=== PATIENT | female | born 1940 | race Caucasian/White ===

== ENCOUNTER 2017-05-25 05:23 | Inpatient (IN) | payer MEDICARE, MEDICAID ==
[~2017-05-25] VITALS: Ht 142.2 cm; Wt 50.0 kg
[2017-05-25] VITALS (7 sets, daily range): BP systolic 118–146; BP diastolic 56–81
[~2017-05-25 05:23] MED LIST: ALBUPOW25 XX; CODEINE PO; DILT120T8 OR; LISI10TA6 OR; LORA-205 OR; POTA-167 OR; PROMETHAZINE PO; ROSU10TA16 OR; potassium gluconate
[2017-05-25 06:24] LABS: Basophils # (auto) 0.1 uL; Basophils % (auto) 0.7 % (0.0-2.0); Eosinophils # (auto) 0 uL; Eosinophils % (auto) 0.2 % (0.0-7.0); Hematocrit 38.3 % (36.0-46.0); Hemoglobin 12.2 g/dL (12.2-16.2); Lymphocytes # (auto) 0.5 uL; Lymphocytes % (auto) 4.2 % (10.0-50.0); Mean Corpuscular Hemoglobin 32.3 pg (28.0-32.0); Mean Corpuscular Hgb Conc. 31.8 g/dL (32.0-36.0); Mean Corpuscular Volume 101.4 fL (80.0-100.0); Monocytes % (auto) 8.1 % (0.0-12.0); Neutrophils # (auto) 10.7 uL; Neutrophils % (auto) 86.8 % (37.0-80.0); Platelet Count (auto) 162 10^3/uL (140-450); Red Blood Cells 3.78 10^6/uL (4.0-5.20); Red Cell Distribution Width 16.2 % (11.8-14.3); White Blood Cell 12.3 10^3/uL (4.4-10.8)
[2017-05-25 06:38] LABS: INR 1.06 (0.9-1.15); Partial Thromboplastin Time 28.5 sec (22.64-33.71); Prothrombin Time 11.6 sec (9.37-12.3)
[2017-05-25 06:44] LABS: Albumin 3.6 g/dL (3.4-5.0); BUN/Creatinine Ratio 52.7; Calcium 8.8 mg/dL (8.5-10.1)
[2017-05-25] MEDS ORDERED: ACETAMINOPHEN 650 MG RECT SUPP PR ONE (06:45)
[2017-05-25 06:58] LABS: Bilirubin, Total 0.5 mg/dL (0.2-1.0); Total Protein 7.9 g/dL (6.4-8.2)
[2017-05-25] MEDS ORDERED: SODIUM CHLORIDE 0.9% 1,000 ML IV ONE (07:00)
[2017-05-25 07:43] LABS: Urine Bacteria MOD /hpf (None Seen); Urine Blood Negative /uL (Negative); Urine Mucus MODERATE (None Seen); Urine Specific Gravity 1.027 (1.001-1.035); Urine WBC 129 /hpf (0 - 5)
[2017-05-25] MEDS ORDERED: VANCOMYCIN 1GM/250ML 250 ML IV ONE (07:45)
[2017-05-25] MEDS ORDERED: VANCOMYCIN PER PHARMACY 0 MG IV SCH (10:15)
[2017-05-25] MEDS ORDERED: CLOPIDOGREL BISULFATE 75 MG TAB PO ONE (10:15)
[2017-05-25] MEDS ORDERED: DILTIAZEM HCL 120MG ER CAP PO ONE (10:15)
[2017-05-25] MEDS ORDERED: LEVOFLOXACIN 500MG 100 ML IV ONE (10:15)
[2017-05-25] MEDS ORDERED: LEVOTHYROXINE SODIUM 100 MCG TAB PO ONE (10:15)
[2017-05-25] MEDS ORDERED: ASCORBIC ACID 500 MG TAB PO ONE (10:15)
[2017-05-25] MEDS ORDERED: PANTOPRAZOLE 40 MG TAB PO ONE (10:30)
[2017-05-25] MEDS ORDERED: HYDROcodone-ACET 5/325MG TAB PO PRN (10:30)
[2017-05-25] MEDS ORDERED: TEMAZEPAM 15 MG CAP PO PRN (10:30)
[2017-05-25] MEDS ORDERED: DEXTROSE (50%) 50ML SYRG IV PRN (10:30)
[2017-05-25] MEDS ORDERED: MILK OF MAGNESIA 30ML SUSP PO PRN (10:30)
[2017-05-25] MEDS ORDERED: POTASSIUM CHLORIDE 8 MEQ TAB PO ONE (10:30)
[2017-05-25] MEDS ORDERED: NITROGLYCERIN 0.4 MG SL TAB SL PRN (10:30)
[2017-05-25] MEDS ORDERED: FUROSEMIDE 20 MG/2 ML VIAL IV ONE (10:30)
[2017-05-25] MEDS ORDERED: DOCUSATE SOD 100 MG CAP PO PRN (10:30)
[2017-05-25] MEDS ORDERED: ONDANSETRON HCL 4 MG/2 ML VIAL IV PRN (10:30)
[2017-05-25] MEDS ORDERED: MORPHINE SULFATE 4 MG/ML SYR/VIAL IV PRN ×2 (10:30)
[2017-05-25] MEDS: InsuLIN REG 1unit/0.01ml Soln (100units/ml) SC SCH ×3 (11:04→22:00)
[2017-05-25] MEDS: ACCU-CHEK COMFORT CURVE STRIP VI SCH ×3 (11:04→22:20)
[2017-05-25] MEDS: MEGESTROL ACET 400MG/10ML ORAL SUSP PO SCH ×2 (11:13→21:56)
[2017-05-25] MEDS: BUDESONIDE (INHALATION) 0.5 MG/2 ML NEB NEB SCH ×2 (11:35→18:56)
[2017-05-25] MEDS: LEVALBUTEROL HCL 1.25 MG/3 ML NEB IN SCH ×2 (11:35→18:56)
[2017-05-25] MEDS: IPRATROPIUM BROM 0.5 MG/2.5ML INH SOL NEB SCH ×2 (11:35→18:56)
[2017-05-25] MEDS ORDERED: PATIENTS OWN MEDICATION IN SCH (12:00)
[2017-05-25] MEDS ORDERED: PATIENTS OWN MEDICATION NEB SCH (12:00)
[2017-05-25] MEDS ORDERED: BOOST PLUS 8 ounce PO SCH (12:00)
[2017-05-25] MEDS: SODIUM CHLOR 0.9% PF (SALINE LOCK) 10ML VIAL IV SCH ×2 (12:46→21:55)
[2017-05-25] MEDS: Boost Glucose Control 8 Ounces PO SCH ×2 (13:03→18:33)
[2017-05-25 14:27] LABS: Urine Bacteria FEW /hpf (None Seen); Urine Blood 1+ /uL (Negative); Urine Specific Gravity 1.011 (1.001-1.035); Urine WBC 6 /hpf (0 - 5)
[2017-05-25] MEDS: FUROSEMIDE 20 MG/2 ML VIAL IV SCH (18:33)
[2017-05-25] MEDS ORDERED: VANCOMYCIN 750 MG in D5W 5% 250 ML IV SCH (20:00)
[2017-05-25] MEDS: TOLTERODINE TARTRATE 1 MG TAB PO SCH (21:55)
[2017-05-25] MEDS: ATORVASTATIN 20 MG TAB PO SCH (21:56)
[2017-05-25] MEDS: MIRTAZAPINE 30 MG TAB PO SCH (21:56)
[2017-05-25] MEDS: POTASSIUM CHLORIDE 8 MEQ TAB PO SCH (21:56)
[2017-05-25] MEDS ORDERED: FAMOTIDINE 20 MG TAB PO SCH (22:00)
[2017-05-26] VITALS (8 sets, daily range): BP systolic 112–130; BP diastolic 55–76
[2017-05-26] MEDS: LEVALBUTEROL HCL 1.25 MG/3 ML NEB IN SCH ×4 (00:29→18:45)
[2017-05-26] MEDS: IPRATROPIUM BROM 0.5 MG/2.5ML INH SOL NEB SCH ×4 (00:29→18:45)
[2017-05-26] MEDS: SODIUM CHLOR 0.9% PF (SALINE LOCK) 10ML VIAL IV SCH ×3 (05:56→21:30)
[2017-05-26 06:06] LABS: Basophils # (auto) 0 uL; Eosinophils # (auto) 0 uL; Hematocrit 38.1 % (36.0-46.0); Hemoglobin 12.2 g/dL (12.2-16.2); Lymphocytes # (auto) 0.7 uL; Mean Corpuscular Volume 103.5 fL (80.0-100.0); Red Cell Distribution Width 15.9 % (11.8-14.3)
[2017-05-26 06:09] LABS: Basophils % (auto) 0.3 % (0.0-2.0); Eosinophils % (auto) 0.2 % (0.0-7.0); Lymphocytes % (auto) 8.4 % (10.0-50.0); Mean Corpuscular Hgb Conc. 31.9 g/dL (32.0-36.0); Monocytes % (auto) 12.4 % (0.0-12.0); Neutrophils # (auto) 6.5 uL; Neutrophils % (auto) 78.7 % (37.0-80.0); Nucleated Red Blood Cells % 0.2 %; Platelet Count (auto) 130 10^3/uL (140-450); Red Blood Cells 3.69 10^6/uL (4.0-5.20); White Blood Cell 8.2 10^3/uL (4.4-10.8)
[2017-05-26] MEDS: ACCU-CHEK COMFORT CURVE STRIP VI SCH ×2 (06:12→11:51)
[2017-05-26] MEDS: InsuLIN REG 1unit/0.01ml Soln (100units/ml) SC SCH ×2 (06:12→11:30)
[2017-05-26 06:15] LABS: Albumin 3.1 g/dL (3.4-5.0); BUN/Creatinine Ratio 56.2; Bilirubin, Total 0.3 mg/dL (0.2-1.0); Potassium 4.8 mmol/L (3.5-5.1); Total Protein 7.6 g/dL (6.4-8.2)
[2017-05-26] MEDS: FUROSEMIDE 20 MG/2 ML VIAL IV SCH ×2 (06:20→10:53)
[2017-05-26] MEDS: LEVOTHYROXINE SODIUM 100 MCG TAB PO SCH (06:20)
[2017-05-26] MEDS: BUDESONIDE (INHALATION) 0.5 MG/2 ML NEB NEB SCH ×2 (06:28→18:45)
[2017-05-26] MEDS: Boost Glucose Control 8 Ounces PO SCH ×3 (08:00→17:41)
[2017-05-26] MEDS: MIRTAZAPINE 30 MG TAB PO SCH ×2 (08:56→21:30)
[2017-05-26] MEDS: DILTIAZEM HCL 120MG ER CAP PO SCH ×2 (10:00→11:17)
[2017-05-26] MEDS: LEVOFLOXACIN 500MG 100 ML IV SCH (10:00)
[2017-05-26] MEDS: CLOPIDOGREL BISULFATE 75 MG TAB PO SCH (10:50)
[2017-05-26] MEDS: POTASSIUM CHLORIDE 8 MEQ TAB PO SCH ×2 (10:50→21:30)
[2017-05-26] MEDS: MULTIPLE VITAMIN TAB PO SCH (10:50)
[2017-05-26] MEDS: ZINC SULFATE 220 MG CAP PO SCH (10:50)
[2017-05-26] MEDS: PANTOPRAZOLE 40 MG TAB PO SCH (10:50)
[2017-05-26] MEDS: ASCORBIC ACID 500 MG TAB PO SCH (10:50)
[2017-05-26] MEDS: TOLTERODINE TARTRATE 1 MG TAB PO SCH ×2 (10:51→21:30)
[2017-05-26] MEDS: MEGESTROL ACET 400MG/10ML ORAL SUSP PO SCH ×2 (10:51→21:30)
[2017-05-26] MEDS: ATORVASTATIN 20 MG TAB PO SCH (21:30)
[2017-05-27] MEDS: IPRATROPIUM BROM 0.5 MG/2.5ML INH SOL NEB SCH ×4 (00:22→19:38)
[2017-05-27] MEDS: LEVALBUTEROL HCL 1.25 MG/3 ML NEB IN SCH ×4 (00:23→19:37)
[2017-05-27 03:56] VITALS: BP 133/67
[2017-05-27] MEDS: SODIUM CHLOR 0.9% PF (SALINE LOCK) 10ML VIAL IV SCH ×3 (06:07→23:06)
[2017-05-27] MEDS: LEVOTHYROXINE SODIUM 100 MCG TAB PO SCH (06:08)
[2017-05-27 06:19] LABS: Potassium 4.7 mmol/L (3.5-5.1)
[2017-05-27 06:23] LABS: BUN/Creatinine Ratio 80.3; Calcium 8.9 mg/dL (8.5-10.1)
[2017-05-27] MEDS: BUDESONIDE (INHALATION) 0.5 MG/2 ML NEB NEB SCH ×2 (06:50→19:38)
[2017-05-27 07:48] LABS: Basophils # (auto) 0 uL; Basophils % (auto) 0.3 % (0.0-2.0); Eosinophils # (auto) 0.1 uL; Eosinophils % (auto) 0.7 % (0.0-7.0); Hematocrit 35.6 % (36.0-46.0); Hemoglobin 11.8 g/dL (12.2-16.2); Lymphocytes # (auto) 0.7 uL; Lymphocytes % (auto) 8.6 % (10.0-50.0); Mean Corpuscular Hemoglobin 32.6 pg (28.0-32.0); Mean Corpuscular Volume 98.8 fL (80.0-100.0); Monocytes # (auto) 0.8 uL; Monocytes % (auto) 9.4 % (0.0-12.0); Neutrophils # (auto) 6.5 uL; Red Cell Distribution Width 14.8 % (11.8-14.3)
[2017-05-27 08:04] LABS: Platelet Count (auto) 137 10^3/uL (140-450)
[2017-05-27] MEDS: Boost Glucose Control 8 Ounces PO SCH ×3 (08:37→18:00)
[2017-05-27] MEDS: FUROSEMIDE 20 MG/2 ML VIAL IV SCH (12:01)
[2017-05-27] MEDS: ASCORBIC ACID 500 MG TAB PO SCH (12:02)
[2017-05-27] MEDS: LEVOFLOXACIN 500MG 100 ML IV SCH (12:02)
[2017-05-27] MEDS: ZINC SULFATE 220 MG CAP PO SCH (12:03)
[2017-05-27] MEDS: TOLTERODINE TARTRATE 1 MG TAB PO SCH ×2 (12:03→23:06)
[2017-05-27] MEDS: POTASSIUM CHLORIDE 8 MEQ TAB PO SCH ×2 (12:03→23:05)
[2017-05-27] MEDS: PANTOPRAZOLE 40 MG TAB PO SCH (12:03)
[2017-05-27] MEDS: CLOPIDOGREL BISULFATE 75 MG TAB PO SCH (12:04)
[2017-05-27] MEDS: DILTIAZEM HCL 120MG ER CAP PO SCH (12:04)
[2017-05-27] MEDS: MEGESTROL ACET 400MG/10ML ORAL SUSP PO SCH ×2 (12:04→22:59)
[2017-05-27] MEDS: MULTIPLE VITAMIN TAB PO SCH (12:04)
[2017-05-27] MEDS: ACETAMINOPHEN 325 MG TAB PO PRN (19:00)
[2017-05-27 21:43] VITALS: BP 131/70
[2017-05-27] MEDS: ATORVASTATIN 20 MG TAB PO SCH ×2 (23:00→23:06)
[2017-05-27] MEDS: MIRTAZAPINE 30 MG TAB PO SCH (23:05)
[2017-05-28] MEDS: IPRATROPIUM BROM 0.5 MG/2.5ML INH SOL NEB SCH ×4 (00:26→18:45)
[2017-05-28] MEDS: LEVALBUTEROL HCL 1.25 MG/3 ML NEB IN SCH ×4 (00:26→18:45)
[2017-05-28 05:29] VITALS: BP 136/71
[2017-05-28] MEDS: LEVOTHYROXINE SODIUM 100 MCG TAB PO SCH (05:35)
[2017-05-28] MEDS: SODIUM CHLOR 0.9% PF (SALINE LOCK) 10ML VIAL IV SCH ×3 (05:37→22:04)
[2017-05-28] MEDS: BUDESONIDE (INHALATION) 0.5 MG/2 ML NEB NEB SCH ×2 (06:41→18:45)
[2017-05-28] MEDS: Boost Glucose Control 8 Ounces PO SCH ×3 (08:00→18:29)
[2017-05-28 08:21] VITALS: BP 134/54
[2017-05-28] MEDS: POTASSIUM CHLORIDE 8 MEQ TAB PO SCH ×2 (09:40→22:04)
[2017-05-28] MEDS: MEGESTROL ACET 400MG/10ML ORAL SUSP PO SCH ×2 (09:40→22:04)
[2017-05-28] MEDS: MULTIPLE VITAMIN TAB PO SCH (09:40)
[2017-05-28] MEDS: TOLTERODINE TARTRATE 1 MG TAB PO SCH ×2 (09:40→22:04)
[2017-05-28] MEDS: ZINC SULFATE 220 MG CAP PO SCH (09:40)
[2017-05-28] MEDS: PANTOPRAZOLE 40 MG TAB PO SCH (09:40)
[2017-05-28] MEDS: DILTIAZEM HCL 120MG ER CAP PO SCH (09:40)
[2017-05-28] MEDS: ASCORBIC ACID 500 MG TAB PO SCH (09:40)
[2017-05-28] MEDS: CLOPIDOGREL BISULFATE 75 MG TAB PO SCH (09:40)
[2017-05-28] MEDS: LEVOFLOXACIN 500MG 100 ML IV SCH (09:41)
[2017-05-28] MEDS: FUROSEMIDE 20 MG/2 ML VIAL IV SCH (09:41)
[2017-05-28 11:41] VITALS: BP 136/59
[2017-05-28] MEDS ORDERED: MAGN400S25 PO (16:00)
[2017-05-28] MEDS ORDERED: CLOP75TA28 PO (16:00)
[2017-05-28] MEDS ORDERED: ASCO500T11 PO (16:00)
[2017-05-28] MEDS ORDERED: MED20T PO (16:00)
[2017-05-28] MEDS ORDERED: FLEETMIN PR (16:00)
[2017-05-28] MEDS ORDERED: BIS10RS PR (16:00)
[2017-05-28] MEDS ORDERED: SIMV10TA84 PO (16:00)
[2017-05-28] MEDS ORDERED: TOLT4CAP12 PO (16:00)
[2017-05-28] MEDS ORDERED: MULT-228 PO (16:00)
[2017-05-28] MEDS ORDERED: LEVO100T69 PO (16:00)
[2017-05-28] MEDS ORDERED: DICL1GEL26 TOP (16:00)
[2017-05-28] MEDS ORDERED: LEV063IS NEB (16:00)
[2017-05-28] MEDS ORDERED: MIRT15TA3 PO (16:00)
[2017-05-28] MEDS ORDERED: FAMO-12 PO (16:00)
[2017-05-28 16:57] VITALS: BP 132/79
[2017-05-28 19:57] VITALS: BP 132/79
[2017-05-28 22:00] VITALS: BP 145/64
[2017-05-28] MEDS: MIRTAZAPINE 30 MG TAB PO SCH (22:04)
[2017-05-29] MEDS: LEVALBUTEROL HCL 1.25 MG/3 ML NEB IN SCH ×4 (00:15→18:51)
[2017-05-29] MEDS: IPRATROPIUM BROM 0.5 MG/2.5ML INH SOL NEB SCH ×4 (00:15→18:51)
[2017-05-29 05:00] VITALS: BP 144/78
[2017-05-29] MEDS: BUDESONIDE (INHALATION) 0.5 MG/2 ML NEB NEB SCH ×2 (06:00→18:51)
[2017-05-29] MEDS: SODIUM CHLOR 0.9% PF (SALINE LOCK) 10ML VIAL IV SCH ×3 (06:07→22:30)
[2017-05-29] MEDS: LEVOTHYROXINE SODIUM 100 MCG TAB PO SCH (06:16)
[2017-05-29] MEDS: Boost Glucose Control 8 Ounces PO SCH ×2 (08:00→12:00)
[2017-05-29 09:00] VITALS: BP_SYST 120; BP_SYST 122; BP_DIAS 68
[2017-05-29] MEDS: ZINC SULFATE 220 MG CAP PO SCH (10:00)
[2017-05-29] MEDS: TOLTERODINE TARTRATE 1 MG TAB PO SCH ×2 (10:00→22:30)
[2017-05-29] MEDS: MEGESTROL ACET 400MG/10ML ORAL SUSP PO SCH ×2 (10:00→22:00)
[2017-05-29] MEDS: PANTOPRAZOLE 40 MG TAB PO SCH (10:00)
[2017-05-29] MEDS: DILTIAZEM HCL 120MG ER CAP PO SCH (10:00)
[2017-05-29] MEDS: CLOPIDOGREL BISULFATE 75 MG TAB PO SCH (10:00)
[2017-05-29] MEDS: MULTIPLE VITAMIN TAB PO SCH (10:00)
[2017-05-29] MEDS: ASCORBIC ACID 500 MG TAB PO SCH (10:00)
[2017-05-29] MEDS: POTASSIUM CHLORIDE 8 MEQ TAB PO SCH ×2 (10:00→22:30)
[2017-05-29] MEDS ORDERED: HALOPERIDOL LACTATE 5 MG/ML INJ VIAL IM ONE (10:00)
[2017-05-29] MEDS: FUROSEMIDE 20 MG/2 ML VIAL IV SCH (10:47)
[2017-05-29] MEDS: LEVOFLOXACIN 500MG 100 ML IV SCH (10:47)
[2017-05-29 13:00] VITALS: BP 113/66
[2017-05-29 16:00] VITALS: BP 123/65
[2017-05-29] MEDS: BOOST PLUS 8 ounce PO SCH (18:00)
[2017-05-29] MEDS ORDERED: BOOST PLUS 8 ounce PO SCH (18:00)
[2017-05-29 20:00] VITALS: BP 125/58
[2017-05-29] MEDS: MIRTAZAPINE 30 MG TAB PO SCH (22:00)
[2017-05-29] MEDS: ATORVASTATIN 20 MG TAB PO SCH (22:30)
[2017-05-29 23:50] VITALS: BP 131/65
[2017-05-30] MEDS: IPRATROPIUM BROM 0.5 MG/2.5ML INH SOL NEB SCH ×4 (00:40→18:39)
[2017-05-30] MEDS: LEVALBUTEROL HCL 1.25 MG/3 ML NEB IN SCH ×4 (00:40→18:38)
[2017-05-30 03:50] VITALS: BP 136/75
[2017-05-30] MEDS: SODIUM CHLOR 0.9% PF (SALINE LOCK) 10ML VIAL IV SCH ×3 (06:02→22:13)
[2017-05-30] MEDS: LEVOTHYROXINE SODIUM 100 MCG TAB PO SCH (06:21)
[2017-05-30] MEDS: BUDESONIDE (INHALATION) 0.5 MG/2 ML NEB NEB SCH ×2 (07:26→18:39)
[2017-05-30 08:00] VITALS: BP 124/63
[2017-05-30] MEDS: ZINC SULFATE 220 MG CAP PO SCH (10:01)
[2017-05-30] MEDS: LEVOFLOXACIN 500MG 100 ML IV SCH (10:01)
[2017-05-30] MEDS: PANTOPRAZOLE 40 MG TAB PO SCH (10:01)
[2017-05-30] MEDS: BOOST PLUS 8 ounce PO SCH ×3 (10:01→17:04)
[2017-05-30] MEDS: MULTIPLE VITAMIN TAB PO SCH (10:01)
[2017-05-30] MEDS: FUROSEMIDE 20 MG/2 ML VIAL IV SCH (10:01)
[2017-05-30] MEDS: MEGESTROL ACET 400MG/10ML ORAL SUSP PO SCH ×2 (10:02→22:13)
[2017-05-30] MEDS: DILTIAZEM HCL 120MG ER CAP PO SCH (10:02)
[2017-05-30] MEDS: ASCORBIC ACID 500 MG TAB PO SCH (10:02)
[2017-05-30] MEDS: CLOPIDOGREL BISULFATE 75 MG TAB PO SCH (10:02)
[2017-05-30] MEDS: POTASSIUM CHLORIDE 8 MEQ TAB PO SCH ×2 (10:02→22:16)
[2017-05-30] MEDS: TOLTERODINE TARTRATE 1 MG TAB PO SCH ×2 (10:06→22:16)
[2017-05-30 11:54] VITALS: BP 112/60
[2017-05-30 17:04] VITALS: BP 133/58
[2017-05-30 21:43] VITALS: BP 139/80
[2017-05-30] MEDS: ATORVASTATIN 20 MG TAB PO SCH (22:14)
[2017-05-30] MEDS: MIRTAZAPINE 30 MG TAB PO SCH (22:15)
[2017-05-31] VITALS (85 sets, daily range): BP systolic 68–170; BP diastolic 26–119
[2017-05-31] MEDS: LEVALBUTEROL HCL 1.25 MG/3 ML NEB IN SCH ×4 (00:07→18:25)
[2017-05-31] MEDS: IPRATROPIUM BROM 0.5 MG/2.5ML INH SOL NEB SCH ×4 (00:07→18:25)
[2017-05-31] MEDS ORDERED: SODIUM BICARBONATE 8.4% INJ 50ML SYRINGE IV ONE (03:30)
[2017-05-31] MEDS ORDERED: EPINEPHrine HCL 1 MG/10 ML SYRG IV ONE (03:30)
[2017-05-31] MEDS ORDERED: CALCIUM CHLOR(10%) 100MG/ML 10ML SYRINGE IV ONE (03:30)
[2017-05-31] MEDS: NOREPINEPHRINE 8 MG/250ML KIT 250 ML IV SCH (04:10)
[2017-05-31] MEDS: BUDESONIDE (INHALATION) 0.5 MG/2 ML NEB NEB SCH (05:58)
[2017-05-31] MEDS: MIDAZOLAM DRIP 50 mg/50mL 50 ML IV SCH (06:08)
[2017-05-31] MEDS: PROPOFOL 100 ML IV SCH (06:11)
[2017-05-31] MEDS ORDERED: MIDAZOLAM DRIP 50 mg/50mL 50 ML IV ONE (06:14)
[2017-05-31] MEDS: SODIUM CHLOR 0.9% PF (SALINE LOCK) 10ML VIAL IV SCH ×3 (06:30→22:03)
[2017-05-31] MEDS: LEVOTHYROXINE SODIUM 100 MCG TAB PO SCH (07:00)
[2017-05-31 07:07] LABS: Potassium 5.3 mmol/L (3.5-5.1)
[2017-05-31 07:13] LABS: Albumin 3.1 g/dL (3.4-5.0); BUN/Creatinine Ratio 53.7; Calcium 10.7 mg/dL (8.5-10.1)
[2017-05-31 07:15] LABS: Bilirubin, Total 0.3 mg/dL (0.2-1.0); Total Protein 7.4 g/dL (6.4-8.2)
[2017-05-31] MEDS: BOOST PLUS 8 ounce PO SCH ×3 (08:00→17:32)
[2017-05-31] MEDS: ASCORBIC ACID 500 MG TAB PO SCH (10:00)
[2017-05-31] MEDS: LEVOFLOXACIN 500MG 100 ML IV SCH (10:00)
[2017-05-31] MEDS: MULTIPLE VITAMIN TAB PO SCH (10:00)
[2017-05-31] MEDS: PANTOPRAZOLE 40 MG TAB PO SCH (10:00)
[2017-05-31] MEDS: FUROSEMIDE 20 MG/2 ML VIAL IV SCH (10:00)
[2017-05-31] MEDS: DILTIAZEM HCL 120MG ER CAP PO SCH (10:00)
[2017-05-31] MEDS: TOLTERODINE TARTRATE 1 MG TAB PO SCH ×2 (10:00→22:03)
[2017-05-31] MEDS: CLOPIDOGREL BISULFATE 75 MG TAB PO SCH (10:00)
[2017-05-31] MEDS: ZINC SULFATE 220 MG CAP PO SCH (10:00)
[2017-05-31] MEDS: POTASSIUM CHLORIDE 8 MEQ TAB PO SCH ×2 (10:00→22:00)
[2017-05-31] MEDS: MEGESTROL ACET 400MG/10ML ORAL SUSP PO SCH ×2 (10:00→22:00)
[2017-05-31 11:01] LABS: Lactic Acid w/Reflex 8.7 mmol/L (0.4-2.0)
[2017-05-31] MEDS: ACETAMINOPHEN 325 MG TAB PO PRN (17:36)
[2017-05-31] MEDS ORDERED: SODIUM CHLORIDE 0.9% 2,000 ML IV ONE (18:45)
[2017-05-31] MEDS ORDERED: VANCOMYCIN PER PHARMACY 0 MG IV SCH (18:45)
[2017-05-31] MEDS ORDERED: DEXTROSE (50%) 50ML SYRG IV PRN (18:45)
[2017-05-31] MEDS: D5W/SOD CHL 0.45% 1,000 ML IV SCH (20:45)
[2017-05-31] MEDS: InsuLIN REG 1unit/0.01ml Soln (100units/ml) SC SCH (22:00)
[2017-05-31] MEDS: ATORVASTATIN 20 MG TAB PO SCH (22:03)
[2017-05-31] MEDS: MIRTAZAPINE 30 MG TAB PO SCH (22:03)
[2017-05-31] MEDS: ACCU-CHEK COMFORT CURVE STRIP VI SCH (22:04)
[2017-05-31] MEDS: MEROPENEM 500mg/10ml IVPUSH 10 ML IV SCH ×2 (22:08→22:30)
[2017-05-31] MEDS ORDERED: VANCOMYCIN 750 MG in D5W 5% 250 ML IV SCH (23:00)
[2017-06-01] VITALS (105 sets, daily range): BP systolic 85–156; BP diastolic 33–101
[2017-06-01] MEDS: LEVALBUTEROL HCL 1.25 MG/3 ML NEB IN SCH ×4 (00:03→18:26)
[2017-06-01] MEDS: BUDESONIDE (INHALATION) 0.5 MG/2 ML NEB NEB SCH ×3 (00:03→18:26)
[2017-06-01] MEDS: IPRATROPIUM BROM 0.5 MG/2.5ML INH SOL NEB SCH ×4 (00:03→18:25)
[2017-06-01 05:32] LABS: Basophils # (auto) 0 uL; Basophils % (auto) 0.1 % (0.0-2.0); Eosinophils # (auto) 0 uL; Hematocrit 28.2 % (36.0-46.0); Hemoglobin 9.3 g/dL (12.2-16.2); Lymphocytes # (auto) 0.8 uL; Mean Corpuscular Hemoglobin 32.3 pg (28.0-32.0); Mean Corpuscular Hgb Conc. 32.9 g/dL (32.0-36.0); Mean Corpuscular Volume 98.1 fL (80.0-100.0); Monocytes # (auto) 0.5 uL; Monocytes % (auto) 3.5 % (0.0-12.0); Neutrophils # (auto) 11.6 uL; Neutrophils % (auto) 90.4 % (37.0-80.0); Platelet Count (auto) 107 10^3/uL (140-450); Red Blood Cells 2.88 10^6/uL (4.0-5.20); White Blood Cell 12.8 10^3/uL (4.4-10.8)
[2017-06-01 05:42] LABS: Albumin 2.4 g/dL (3.4-5.0); Bilirubin, Total 0.4 mg/dL (0.2-1.0); Calcium 8.1 mg/dL (8.5-10.1); Potassium 4.2 mmol/L (3.5-5.1); Total Protein 5.9 g/dL (6.4-8.2)
[2017-06-01] MEDS: MIDAZOLAM DRIP 50 mg/50mL 50 ML IV SCH ×2 (06:08→10:18)
[2017-06-01] MEDS: PROPOFOL 100 ML IV SCH (06:11)
[2017-06-01] MEDS: SODIUM CHLOR 0.9% PF (SALINE LOCK) 10ML VIAL IV SCH ×3 (06:30→22:00)
[2017-06-01] MEDS: D5W/SOD CHL 0.45% 1,000 ML IV SCH ×2 (06:36→17:45)
[2017-06-01] MEDS: InsuLIN REG 1unit/0.01ml Soln (100units/ml) SC SCH ×4 (06:36→22:00)
[2017-06-01] MEDS: LEVOTHYROXINE SODIUM 100 MCG TAB PO SCH (06:36)
[2017-06-01] MEDS: ACCU-CHEK COMFORT CURVE STRIP VI SCH ×4 (06:36→22:00)
[2017-06-01] MEDS: BOOST PLUS 8 ounce PO SCH (08:00)
[2017-06-01] MEDS: DILTIAZEM HCL 120MG ER CAP PO SCH (10:00)
[2017-06-01] MEDS: PANTOPRAZOLE 40 MG TAB PO SCH (10:00)
[2017-06-01] MEDS ORDERED: Diabetisource AC 1 Liter GT SCH (10:15)
[2017-06-01] MEDS: MEGESTROL ACET 400MG/10ML ORAL SUSP PO SCH ×2 (10:17→22:00)
[2017-06-01] MEDS: POTASSIUM CHLORIDE 8 MEQ TAB PO SCH ×2 (10:18→22:00)
[2017-06-01] MEDS: ASCORBIC ACID 500 MG TAB PO SCH (10:18)
[2017-06-01] MEDS: ZINC SULFATE 220 MG CAP PO SCH (10:18)
[2017-06-01] MEDS: MULTIPLE VITAMIN TAB PO SCH (10:18)
[2017-06-01] MEDS: PANTOPRAZOLE 40 MG/10 ML VIAL IV SCH (10:18)
[2017-06-01] MEDS: CLOPIDOGREL BISULFATE 75 MG TAB PO SCH (10:18)
[2017-06-01] MEDS: TOLTERODINE TARTRATE 1 MG TAB PO SCH ×2 (10:20→22:00)
[2017-06-01] MEDS: NOREPINEPHRINE 8 MG/250ML KIT 250 ML IV SCH ×2 (10:21)
[2017-06-01] MEDS: CIPROFLOXACIN 400MG/200ML 200 ML IV SCH ×2 (10:38→22:00)
[2017-06-01] MEDS: MIRTAZAPINE 30 MG TAB PO SCH (22:00)
[2017-06-01] MEDS: ATORVASTATIN 20 MG TAB PO SCH (22:00)
[2017-06-02] VITALS (85 sets, daily range): BP systolic 85–130; BP diastolic 28–76
[2017-06-02] MEDS: IPRATROPIUM BROM 0.5 MG/2.5ML INH SOL NEB SCH ×4 (00:10→18:21)
[2017-06-02] MEDS: LEVALBUTEROL HCL 1.25 MG/3 ML NEB IN SCH ×4 (00:10→18:21)
[2017-06-02] MEDS: D5W/SOD CHL 0.45% 1,000 ML IV SCH ×3 (03:00→22:45)
[2017-06-02 06:10] LABS: Basophils # (auto) 0 uL; Eosinophils # (auto) 0 uL; Eosinophils % (auto) 0.4 % (0.0-7.0); Hematocrit 24.3 % (36.0-46.0); Lymphocytes # (auto) 0.5 uL; Neutrophils # (auto) 5.8 uL
[2017-06-02 06:11] LABS: Basophils % (auto) 0.2 % (0.0-2.0); Lymphocytes % (auto) 8.1 % (10.0-50.0); Mean Corpuscular Hemoglobin 32.5 pg (28.0-32.0); Mean Corpuscular Volume 98.4 fL (80.0-100.0); Monocytes # (auto) 0.3 uL; Monocytes % (auto) 4.5 % (0.0-12.0); Neutrophils % (auto) 86.8 % (37.0-80.0); Platelet Count (auto) 62 10^3/uL (140-450); Red Blood Cells 2.47 10^6/uL (4.0-5.20); Red Cell Distribution Width 15.2 % (11.8-14.3); White Blood Cell 6.7 10^3/uL (4.4-10.8)
[2017-06-02] MEDS: PROPOFOL 100 ML IV SCH (06:11)
[2017-06-02] MEDS: SODIUM CHLOR 0.9% PF (SALINE LOCK) 10ML VIAL IV SCH ×3 (06:15→21:46)
[2017-06-02 06:23] LABS: Albumin 2.2 g/dL (3.4-5.0); BUN/Creatinine Ratio 63.6; Bilirubin, Total 0.4 mg/dL (0.2-1.0); Calcium 7.7 mg/dL (8.5-10.1); Potassium 3.8 mmol/L (3.5-5.1); Total Protein 5.5 g/dL (6.4-8.2)
[2017-06-02] MEDS: BUDESONIDE (INHALATION) 0.5 MG/2 ML NEB NEB SCH ×2 (06:31→18:21)
[2017-06-02] MEDS: LEVOTHYROXINE SODIUM 100 MCG TAB PO SCH (06:31)
[2017-06-02] MEDS: ACCU-CHEK COMFORT CURVE STRIP VI SCH ×4 (06:52→22:00)
[2017-06-02] MEDS: InsuLIN REG 1unit/0.01ml Soln (100units/ml) SC SCH ×4 (06:52→22:00)
[2017-06-02] MEDS: NOREPINEPHRINE 8 MG/250ML KIT 250 ML IV SCH (07:55)
[2017-06-02] MEDS: DILTIAZEM HCL 120MG ER CAP PO SCH (10:00)
[2017-06-02] MEDS: PANTOPRAZOLE 40 MG TAB PO SCH (10:00)
[2017-06-02] MEDS: ZINC SULFATE 220 MG CAP PO SCH (10:01)
[2017-06-02] MEDS: MEGESTROL ACET 400MG/10ML ORAL SUSP PO SCH ×2 (10:01→21:46)
[2017-06-02] MEDS: CIPROFLOXACIN 400MG/200ML 200 ML IV SCH ×2 (10:01→21:46)
[2017-06-02] MEDS: TOLTERODINE TARTRATE 1 MG TAB PO SCH ×2 (10:01→21:46)
[2017-06-02] MEDS: ASCORBIC ACID 500 MG TAB PO SCH (10:01)
[2017-06-02] MEDS: CLOPIDOGREL BISULFATE 75 MG TAB PO SCH (10:01)
[2017-06-02] MEDS: PANTOPRAZOLE 40 MG/10 ML VIAL IV SCH (10:01)
[2017-06-02] MEDS: MULTIPLE VITAMIN TAB PO SCH (10:01)
[2017-06-02] MEDS: POTASSIUM CHL 10% (20 MEQ/15ML) 15ml ORAL SOLN GT SCH ×2 (10:30→21:46)
[2017-06-02] MEDS: MIRTAZAPINE 30 MG TAB PO SCH (21:46)
[2017-06-02] MEDS: ATORVASTATIN 20 MG TAB PO SCH (21:46)
[2017-06-03] VITALS (52 sets, daily range): BP systolic 91–133; BP diastolic 30–79
[2017-06-03] MEDS: IPRATROPIUM BROM 0.5 MG/2.5ML INH SOL NEB SCH ×4 (00:29→18:11)
[2017-06-03] MEDS: LEVALBUTEROL HCL 1.25 MG/3 ML NEB IN SCH ×4 (00:29→18:11)
[2017-06-03 03:34] LABS: Basophils # (auto) 0 uL; Eosinophils # (auto) 0 uL; Eosinophils % (auto) 0.5 % (0.0-7.0); Hemoglobin 7.3 g/dL (12.2-16.2); Lymphocytes # (auto) 0.4 uL; Mean Corpuscular Volume 99.1 fL (80.0-100.0); Monocytes # (auto) 0.4 uL; Neutrophils # (auto) 5.8 uL; Platelet Count (auto) 51 10^3/uL (140-450)
[2017-06-03 03:37] LABS: Basophils % (auto) 0.2 % (0.0-2.0); Hematocrit 22.1 % (36.0-46.0); Lymphocytes % (auto) 6.4 % (10.0-50.0); Mean Corpuscular Hemoglobin 32.7 pg (28.0-32.0); Monocytes % (auto) 5.9 % (0.0-12.0); Red Blood Cells 2.23 10^6/uL (4.0-5.20); Red Cell Distribution Width 15.3 % (11.8-14.3); White Blood Cell 6.6 10^3/uL (4.4-10.8)
[2017-06-03] MEDS: SODIUM CHLOR 0.9% PF (SALINE LOCK) 10ML VIAL IV SCH ×3 (06:00→22:00)
[2017-06-03] MEDS: MIDAZOLAM DRIP 50 mg/50mL 50 ML IV SCH ×2 (06:08→19:47)
[2017-06-03] MEDS: PROPOFOL 100 ML IV SCH (06:11)
[2017-06-03] MEDS: BUDESONIDE (INHALATION) 0.5 MG/2 ML NEB NEB SCH ×2 (07:03→18:11)
[2017-06-03 07:23] LABS: Potassium 4.6 mmol/L (3.5-5.1)
[2017-06-03] MEDS: ACCU-CHEK COMFORT CURVE STRIP VI SCH ×4 (07:45→22:00)
[2017-06-03] MEDS: NOREPINEPHRINE 8 MG/250ML KIT 250 ML IV SCH (07:45)
[2017-06-03] MEDS: InsuLIN REG 1unit/0.01ml Soln (100units/ml) SC SCH ×4 (07:45→22:00)
[2017-06-03] MEDS: LEVOTHYROXINE SODIUM 100 MCG TAB PO SCH (07:56)
[2017-06-03] MEDS: D5W/SOD CHL 0.45% 1,000 ML IV SCH ×2 (08:45→19:05)
[2017-06-03] MEDS: MEGESTROL ACET 400MG/10ML ORAL SUSP PO SCH ×2 (10:15→22:00)
[2017-06-03] MEDS: ZINC SULFATE 220 MG CAP PO SCH (10:15)
[2017-06-03] MEDS: DILTIAZEM HCL 120MG ER CAP PO SCH (10:16)
[2017-06-03] MEDS: CLOPIDOGREL BISULFATE 75 MG TAB PO SCH (10:16)
[2017-06-03] MEDS: MULTIPLE VITAMIN TAB PO SCH (10:16)
[2017-06-03] MEDS: ASCORBIC ACID 500 MG TAB PO SCH (10:16)
[2017-06-03] MEDS: PANTOPRAZOLE 40 MG TAB PO SCH (10:17)
[2017-06-03] MEDS: TOLTERODINE TARTRATE 1 MG TAB PO SCH ×2 (10:17→22:00)
[2017-06-03] MEDS: POTASSIUM CHL 10% (20 MEQ/15ML) 15ml ORAL SOLN GT SCH ×2 (10:18→22:00)
[2017-06-03] MEDS: CIPROFLOXACIN 400MG/200ML 200 ML IV SCH (10:18)
[2017-06-03] MEDS ORDERED: DAPTOmycin 250 MG in SODIUM CHL 0.9% 50 ML IV ONE (15:30)
[2017-06-03] MEDS ORDERED: FUROSEMIDE 40 MG/4 ML VIAL IV ONE (16:15)
[2017-06-03 17:18] LABS: INR 1.11 (0.9-1.15); Prothrombin Time 12.1 sec (9.37-12.3)
[2017-06-03 19:31] LABS: Fibrinogen 483.6 mg/dL (177-375)
[2017-06-03] MEDS: ATORVASTATIN 20 MG TAB PO SCH (22:00)
[2017-06-03] MEDS: MIRTAZAPINE 30 MG TAB PO SCH (22:00)
[2017-06-04] VITALS (46 sets, daily range): BP systolic 73–158; BP diastolic 6–86
[2017-06-04] MEDS: D5W/SOD CHL 0.45% 1,000 ML IV SCH ×2 (04:45→14:57)
[2017-06-04 05:38] LABS: Basophils # (auto) 0 uL; Basophils % (auto) 0.1 % (0.0-2.0); Eosinophils # (auto) 0.1 uL; Eosinophils % (auto) 0.6 % (0.0-7.0); Hematocrit 37.7 % (36.0-46.0); Hemoglobin 12.5 g/dL (12.2-16.2); Lymphocytes # (auto) 0.5 uL; Lymphocytes % (auto) 4.7 % (10.0-50.0); Mean Corpuscular Hemoglobin 31.7 pg (28.0-32.0); Mean Corpuscular Hgb Conc. 33.2 g/dL (32.0-36.0); Mean Corpuscular Volume 95.5 fL (80.0-100.0); Monocytes # (auto) 0.6 uL; Monocytes % (auto) 6.4 % (0.0-12.0); Neutrophils # (auto) 8.5 uL; Neutrophils % (auto) 88.2 % (37.0-80.0); Platelet Count (auto) 67 10^3/uL (140-450); Red Blood Cells 3.95 10^6/uL (4.0-5.20); Red Cell Distribution Width 17.3 % (11.8-14.3); White Blood Cell 9.7 10^3/uL (4.4-10.8)
[2017-06-04 05:51] LABS: Potassium 5.2 mmol/L (3.5-5.1)
[2017-06-04 05:55] LABS: BUN/Creatinine Ratio 46.7
[2017-06-04 05:58] LABS: Calcium 5.6 mg/dL (8.5-10.1)
[2017-06-04] MEDS: SODIUM CHLOR 0.9% PF (SALINE LOCK) 10ML VIAL IV SCH ×3 (06:00→22:00)
[2017-06-04] MEDS: PROPOFOL 100 ML IV SCH (06:11)
[2017-06-04] MEDS: LEVALBUTEROL HCL 1.25 MG/3 ML NEB IN SCH ×4 (06:12→18:13)
[2017-06-04] MEDS: IPRATROPIUM BROM 0.5 MG/2.5ML INH SOL NEB SCH ×4 (06:12→18:13)
[2017-06-04] MEDS: BUDESONIDE (INHALATION) 0.5 MG/2 ML NEB NEB SCH ×2 (06:13→18:13)
[2017-06-04] MEDS: InsuLIN REG 1unit/0.01ml Soln (100units/ml) SC SCH ×4 (06:34→22:00)
[2017-06-04] MEDS: LEVOTHYROXINE SODIUM 100 MCG TAB PO SCH (06:34)
[2017-06-04] MEDS: ACCU-CHEK COMFORT CURVE STRIP VI SCH ×4 (06:35→22:00)
[2017-06-04] MEDS: ASCORBIC ACID 500 MG TAB PO SCH (10:00)
[2017-06-04] MEDS: DAPTOmycin 250 MG in SODIUM CHL 0.9% 50 ML IV SCH (10:00)
[2017-06-04] MEDS: POTASSIUM CHL 10% (20 MEQ/15ML) 15ml ORAL SOLN GT SCH ×2 (10:00→22:00)
[2017-06-04] MEDS ORDERED: DAPTOmycin 0 MG in SODIUM CHL 0.9% 50 ML IV SCH (10:00)
[2017-06-04] MEDS: PANTOPRAZOLE 40 MG TAB PO SCH (10:00)
[2017-06-04] MEDS: TOLTERODINE TARTRATE 1 MG TAB PO SCH ×2 (10:24→22:00)
[2017-06-04] MEDS: MEGESTROL ACET 400MG/10ML ORAL SUSP PO SCH ×2 (10:24→22:00)
[2017-06-04] MEDS: MULTIPLE VITAMIN TAB PO SCH (10:24)
[2017-06-04] MEDS: ZINC SULFATE 220 MG CAP PO SCH (10:24)
[2017-06-04] MEDS: CLOPIDOGREL BISULFATE 75 MG TAB PO SCH (10:24)
[2017-06-04] MEDS: DILTIAZEM HCL 120MG ER CAP PO SCH (10:25)
[2017-06-04] MEDS ORDERED: Diabetisource AC 1 Liter GT SCH (15:45)
[2017-06-04] MEDS: NOREPINEPHRINE 8 MG/250ML KIT 250 ML IV SCH (19:03)
[2017-06-04] MEDS: MIRTAZAPINE 30 MG TAB PO SCH (22:00)
[2017-06-04] MEDS: ATORVASTATIN 20 MG TAB PO SCH (22:00)
[2017-06-05] VITALS (57 sets, daily range): BP systolic 83–142; BP diastolic 31–82
[2017-06-05] MEDS: IPRATROPIUM BROM 0.5 MG/2.5ML INH SOL NEB SCH ×3 (00:05→11:35)
[2017-06-05] MEDS: LEVALBUTEROL HCL 1.25 MG/3 ML NEB IN SCH ×3 (00:05→11:35)
[2017-06-05] MEDS: D5W/SOD CHL 0.45% 1,000 ML IV SCH ×3 (00:45→20:45)
[2017-06-05 04:52] LABS: Basophils # (auto) 0 uL; Basophils % (auto) 0.1 % (0.0-2.0); Eosinophils # (auto) 0.1 uL; Eosinophils % (auto) 0.6 % (0.0-7.0); Hematocrit 34.3 % (36.0-46.0); Hemoglobin 11.6 g/dL (12.2-16.2); Lymphocytes # (auto) 0.4 uL; Lymphocytes % (auto) 4.5 % (10.0-50.0); Mean Corpuscular Hemoglobin 32.3 pg (28.0-32.0); Mean Corpuscular Hgb Conc. 33.8 g/dL (32.0-36.0); Mean Corpuscular Volume 95.6 fL (80.0-100.0); Monocytes # (auto) 0.7 uL; Neutrophils # (auto) 7.5 uL; Neutrophils % (auto) 86.8 % (37.0-80.0); Nucleated Red Blood Cells % 0.2 %; Platelet Count (auto) 75 10^3/uL (140-450); Red Blood Cells 3.58 10^6/uL (4.0-5.20); Red Cell Distribution Width 16.4 % (11.8-14.3); White Blood Cell 8.6 10^3/uL (4.4-10.8)
[2017-06-05 05:13] LABS: BUN/Creatinine Ratio 44.7; Calcium 7.3 mg/dL (8.5-10.1)
[2017-06-05] MEDS: BUDESONIDE (INHALATION) 0.5 MG/2 ML NEB NEB SCH (05:57)
[2017-06-05] MEDS: LEVOTHYROXINE SODIUM 100 MCG TAB PO SCH (06:00)
[2017-06-05] MEDS: SODIUM CHLOR 0.9% PF (SALINE LOCK) 10ML VIAL IV SCH ×3 (06:26→22:49)
[2017-06-05] MEDS: MIDAZOLAM DRIP 50 mg/50mL 50 ML IV SCH (06:26)
[2017-06-05] MEDS: InsuLIN REG 1unit/0.01ml Soln (100units/ml) SC SCH ×3 (07:00→18:00)
[2017-06-05] MEDS: PROPOFOL 100 ML IV SCH (07:15)
[2017-06-05] MEDS: ACCU-CHEK COMFORT CURVE STRIP VI SCH ×3 (07:16→18:00)
[2017-06-05] MEDS: NOREPINEPHRINE 8 MG/250ML KIT 250 ML IV SCH (07:29)
[2017-06-05] MEDS ORDERED: DEXTROSE (50%) 50ML SYRG IV PRN (07:45)
[2017-06-05] MEDS: POTASSIUM CHL 10% (20 MEQ/15ML) 15ml ORAL SOLN GT SCH ×2 (10:00→22:49)
[2017-06-05] MEDS: ZINC SULFATE 220 MG CAP PO SCH (10:01)
[2017-06-05] MEDS: PANTOPRAZOLE 40 MG TAB PO SCH (10:01)
[2017-06-05] MEDS: MEGESTROL ACET 400MG/10ML ORAL SUSP PO SCH ×2 (10:01→22:49)
[2017-06-05] MEDS: ASCORBIC ACID 500 MG TAB PO SCH (10:01)
[2017-06-05] MEDS: MULTIPLE VITAMIN TAB PO SCH (10:01)
[2017-06-05] MEDS: CLOPIDOGREL BISULFATE 75 MG TAB PO SCH (10:02)
[2017-06-05] MEDS: DILTIAZEM HCL 120MG ER CAP PO SCH (10:02)
[2017-06-05] MEDS: TOLTERODINE TARTRATE 1 MG TAB PO SCH ×2 (10:02→22:48)
[2017-06-05] MEDS: DAPTOmycin 250 MG in SODIUM CHL 0.9% 50 ML IV SCH (10:28)
[2017-06-05] MEDS ORDERED: HEPARIN IN NS 1000U/500ML (2UNIT/ML) 500 ML BAG/KIT IV SCH (22:00)
[2017-06-05] MEDS: ATORVASTATIN 20 MG TAB PO SCH (22:49)
[2017-06-05] MEDS: MIRTAZAPINE 30 MG TAB PO SCH (22:49)
[2017-06-05 23:09] LABS: INR 1.21 (0.9-1.15); Partial Thromboplastin Time 31.3 sec (22.64-33.71); Prothrombin Time 13.2 sec (9.37-12.3)
[2017-06-05] MEDS ORDERED: HEPARIN DRIP/D5W 100UNITS/ML 250 ML IV SCH (23:47)
[2017-06-06] VITALS (59 sets, daily range): BP systolic 84–137; BP diastolic 41–82
[2017-06-06] MEDS ORDERED: HEPARIN SODIUM (PORCINE) 5000 UNITS/ML 1ML VIAL IV ONE
[2017-06-06] MEDS: MIDAZOLAM DRIP 50 mg/50mL 50 ML IV SCH ×3 (00:15→16:12)
[2017-06-06] MEDS: HEPARIN DRIP/D5W 100UNITS/ML 250 ML IV SCH (00:20)
[2017-06-06] MEDS: ACCU-CHEK COMFORT CURVE STRIP VI SCH ×4 (06:00→17:53)
[2017-06-06] MEDS: InsuLIN REG 1unit/0.01ml Soln (100units/ml) SC SCH ×4 (06:00→17:52)
[2017-06-06] MEDS: SODIUM CHLOR 0.9% PF (SALINE LOCK) 10ML VIAL IV SCH ×3 (06:00→22:00)
[2017-06-06] MEDS: PROPOFOL 100 ML IV SCH (06:11)
[2017-06-06] MEDS: D5W/SOD CHL 0.45% 1,000 ML IV SCH ×2 (06:45→16:11)
[2017-06-06] MEDS: LEVALBUTEROL HCL 1.25 MG/3 ML NEB IN SCH ×3 (06:55→19:04)
[2017-06-06] MEDS: IPRATROPIUM BROM 0.5 MG/2.5ML INH SOL NEB SCH ×3 (06:55→19:04)
[2017-06-06] MEDS: BUDESONIDE (INHALATION) 0.5 MG/2 ML NEB NEB SCH ×2 (06:55→19:04)
[2017-06-06] MEDS: LEVOTHYROXINE SODIUM 100 MCG TAB PO SCH (07:00)
[2017-06-06] MEDS: NOREPINEPHRINE 8 MG/250ML KIT 250 ML IV SCH (07:45)
[2017-06-06 08:03] LABS: Basophils # (auto) 0 uL; Basophils % (auto) 0.2 % (0.0-2.0); Eosinophils # (auto) 0 uL; Eosinophils % (auto) 0.4 % (0.0-7.0); Hematocrit 35.5 % (36.0-46.0); Hemoglobin 11.7 g/dL (12.2-16.2); Lymphocytes # (auto) 0.6 uL; Lymphocytes % (auto) 5.5 % (10.0-50.0); Mean Corpuscular Hemoglobin 31.5 pg (28.0-32.0); Mean Corpuscular Hgb Conc. 32.9 g/dL (32.0-36.0); Mean Corpuscular Volume 95.6 fL (80.0-100.0); Monocytes # (auto) 0.9 uL; Monocytes % (auto) 9.2 % (0.0-12.0); Neutrophils # (auto) 8.5 uL; Neutrophils % (auto) 84.7 % (37.0-80.0); Platelet Count (auto) 104 10^3/uL (140-450); Red Blood Cells 3.71 10^6/uL (4.0-5.20); Red Cell Distribution Width 16.1 % (11.8-14.3); White Blood Cell 10.1 10^3/uL (4.4-10.8)
[2017-06-06 08:16] LABS: INR 1.13 (0.9-1.15); Partial Thromboplastin Time 33.8 sec (22.64-33.71); Prothrombin Time 12.3 sec (9.37-12.3)
[2017-06-06] MEDS: POTASSIUM CHL 10% (20 MEQ/15ML) 15ml ORAL SOLN GT SCH ×2 (09:54→22:00)
[2017-06-06] MEDS: DAPTOmycin 250 MG in SODIUM CHL 0.9% 50 ML IV SCH (09:54)
[2017-06-06] MEDS: DILTIAZEM HCL 120MG ER CAP PO SCH (09:55)
[2017-06-06] MEDS: MEGESTROL ACET 400MG/10ML ORAL SUSP PO SCH ×2 (09:55→22:00)
[2017-06-06] MEDS: MULTIPLE VITAMIN TAB PO SCH (09:55)
[2017-06-06] MEDS: CLOPIDOGREL BISULFATE 75 MG TAB PO SCH (09:55)
[2017-06-06] MEDS: ZINC SULFATE 220 MG CAP PO SCH (09:55)
[2017-06-06] MEDS: PANTOPRAZOLE 40 MG TAB PO SCH (09:55)
[2017-06-06] MEDS: TOLTERODINE TARTRATE 1 MG TAB PO SCH ×2 (09:55→22:00)
[2017-06-06] MEDS: ASCORBIC ACID 500 MG TAB PO SCH (09:55)
[2017-06-06] MEDS: MIRTAZAPINE 30 MG TAB PO SCH (22:00)
[2017-06-06] MEDS: ATORVASTATIN 20 MG TAB PO SCH (22:00)
[2017-06-07] VITALS (87 sets, daily range): BP systolic 87–147; BP diastolic 38–75
[2017-06-07] MEDS: ACCU-CHEK COMFORT CURVE STRIP VI SCH ×4 (00:10→17:53)
[2017-06-07] MEDS: IPRATROPIUM BROM 0.5 MG/2.5ML INH SOL NEB SCH ×4 (00:54→18:15)
[2017-06-07] MEDS: LEVALBUTEROL HCL 1.25 MG/3 ML NEB IN SCH ×4 (00:54→18:16)
[2017-06-07] MEDS: D5W/SOD CHL 0.45% 1,000 ML IV SCH ×2 (03:16→13:55)
[2017-06-07 04:05] LABS: Basophils # (auto) 0 uL; Basophils % (auto) 0.2 % (0.0-2.0); Eosinophils # (auto) 0 uL; Eosinophils % (auto) 0.5 % (0.0-7.0); Hematocrit 32.7 % (36.0-46.0); Hemoglobin 10.9 g/dL (12.2-16.2); Lymphocytes # (auto) 0.6 uL; Lymphocytes % (auto) 7.8 % (10.0-50.0); Mean Corpuscular Hemoglobin 31.7 pg (28.0-32.0); Mean Corpuscular Hgb Conc. 33.3 g/dL (32.0-36.0); Monocytes % (auto) 14.3 % (0.0-12.0); Neutrophils # (auto) 5.6 uL; Neutrophils % (auto) 77.2 % (37.0-80.0); Platelet Count (auto) 120 10^3/uL (140-450); Red Blood Cells 3.45 10^6/uL (4.0-5.20); Red Cell Distribution Width 15.6 % (11.8-14.3); White Blood Cell 7.2 10^3/uL (4.4-10.8)
[2017-06-07 04:18] LABS: INR 1.13 (0.9-1.15); Partial Thromboplastin Time 32.4 sec (22.64-33.71); Prothrombin Time 12.3 sec (9.37-12.3)
[2017-06-07 04:21] LABS: BUN/Creatinine Ratio 45.7; Calcium 7.1 mg/dL (8.5-10.1); Potassium 4.2 mmol/L (3.5-5.1)
[2017-06-07 04:24] LABS: Bilirubin, Total 0.5 mg/dL (0.2-1.0); Total Protein 5.3 g/dL (6.4-8.2)
[2017-06-07] MEDS: SODIUM CHLOR 0.9% PF (SALINE LOCK) 10ML VIAL IV SCH ×3 (06:00→22:00)
[2017-06-07] MEDS: InsuLIN REG 1unit/0.01ml Soln (100units/ml) SC SCH ×4 (06:00→17:53)
[2017-06-07] MEDS: PROPOFOL 100 ML IV SCH (06:11)
[2017-06-07] MEDS: BUDESONIDE (INHALATION) 0.5 MG/2 ML NEB NEB SCH ×2 (06:44→18:16)
[2017-06-07] MEDS: LEVOTHYROXINE SODIUM 100 MCG TAB PO SCH (06:51)
[2017-06-07] MEDS: NOREPINEPHRINE 8 MG/250ML KIT 250 ML IV SCH (10:09)
[2017-06-07] MEDS: MULTIPLE VITAMIN TAB PO SCH (10:10)
[2017-06-07] MEDS: MEGESTROL ACET 400MG/10ML ORAL SUSP PO SCH ×2 (10:10→22:42)
[2017-06-07] MEDS: PANTOPRAZOLE 40 MG TAB PO SCH (10:10)
[2017-06-07] MEDS: ASCORBIC ACID 500 MG TAB PO SCH (10:10)
[2017-06-07] MEDS: POTASSIUM CHL 10% (20 MEQ/15ML) 15ml ORAL SOLN GT SCH ×2 (10:10→22:40)
[2017-06-07] MEDS: ZINC SULFATE 220 MG CAP PO SCH (10:10)
[2017-06-07] MEDS: MIDAZOLAM DRIP 50 mg/50mL 50 ML IV SCH ×2 (10:11→18:52)
[2017-06-07] MEDS: TOLTERODINE TARTRATE 1 MG TAB PO SCH ×2 (10:26→22:42)
[2017-06-07] MEDS: DILTIAZEM HCL 60 MG TAB PO SCH ×2 (10:31→22:41)
[2017-06-07] MEDS: DAPTOmycin 250 MG in SODIUM CHL 0.9% 50 ML IV SCH (10:40)
[2017-06-07] MEDS: MIRTAZAPINE 30 MG TAB PO SCH (22:42)
[2017-06-07] MEDS: ATORVASTATIN 20 MG TAB PO SCH (22:42)
[2017-06-08] VITALS (102 sets, daily range): BP systolic 88–158; BP diastolic 39–92
[2017-06-08] MEDS: IPRATROPIUM BROM 0.5 MG/2.5ML INH SOL NEB SCH ×4 (00:24→18:52)
[2017-06-08] MEDS: D5W/SOD CHL 0.45% 1,000 ML IV SCH ×3 (01:10→15:04)
[2017-06-08] MEDS: MIDAZOLAM DRIP 50 mg/50mL 50 ML IV SCH ×2 (02:32→17:42)
[2017-06-08 04:00] LABS: INR 1.17 (0.9-1.15); Partial Thromboplastin Time 34.8 sec (22.64-33.71); Prothrombin Time 12.8 sec (9.37-12.3)
[2017-06-08] MEDS: ACCU-CHEK COMFORT CURVE STRIP VI SCH ×4 (06:00→17:42)
[2017-06-08] MEDS: SODIUM CHLOR 0.9% PF (SALINE LOCK) 10ML VIAL IV SCH ×3 (06:00→22:00)
[2017-06-08] MEDS: InsuLIN REG 1unit/0.01ml Soln (100units/ml) SC SCH ×4 (06:00→17:42)
[2017-06-08] MEDS: LEVALBUTEROL HCL 1.25 MG/3 ML NEB IN SCH ×4 (06:06→18:52)
[2017-06-08] MEDS: PROPOFOL 100 ML IV SCH (06:11)
[2017-06-08] MEDS: LEVOTHYROXINE SODIUM 100 MCG TAB PO SCH (06:50)
[2017-06-08] MEDS: NOREPINEPHRINE 8 MG/250ML KIT 250 ML IV SCH (07:45)
[2017-06-08 08:48] LABS: Albumin 1.9 g/dL (3.4-5.0); BUN/Creatinine Ratio 39.5; Calcium 7.2 mg/dL (8.5-10.1); Potassium 4.1 mmol/L (3.5-5.1)
[2017-06-08 08:50] LABS: Bilirubin, Total 0.6 mg/dL (0.2-1.0); Total Protein 5.5 g/dL (6.4-8.2)
[2017-06-08] MEDS: MEGESTROL ACET 400MG/10ML ORAL SUSP PO SCH ×2 (10:01→22:53)
[2017-06-08] MEDS: TOLTERODINE TARTRATE 1 MG TAB PO SCH ×2 (10:02→22:52)
[2017-06-08] MEDS: MULTIPLE VITAMIN TAB PO SCH (10:02)
[2017-06-08] MEDS: ZINC SULFATE 220 MG CAP PO SCH (10:02)
[2017-06-08 10:03] LABS: Basophils # (auto) 0 uL; Basophils % (auto) 0.4 % (0.0-2.0); Eosinophils # (auto) 0 uL; Eosinophils % (auto) 0.6 % (0.0-7.0); Hematocrit 29.7 % (36.0-46.0); Lymphocytes # (auto) 0.5 uL; Lymphocytes % (auto) 8.2 % (10.0-50.0); Mean Corpuscular Hgb Conc. 33.6 g/dL (32.0-36.0); Mean Corpuscular Volume 95.2 fL (80.0-100.0); Monocytes # (auto) 0.8 uL; Monocytes % (auto) 12.5 % (0.0-12.0); Neutrophils # (auto) 4.9 uL; Neutrophils % (auto) 78.3 % (37.0-80.0); Platelet Count (auto) 128 10^3/uL (140-450); Red Blood Cells 3.12 10^6/uL (4.0-5.20); Red Cell Distribution Width 15.6 % (11.8-14.3); White Blood Cell 6.2 10^3/uL (4.4-10.8)
[2017-06-08] MEDS: PANTOPRAZOLE 40 MG TAB PO SCH (10:03)
[2017-06-08] MEDS: POTASSIUM CHL 10% (20 MEQ/15ML) 15ml ORAL SOLN GT SCH ×2 (10:04→22:51)
[2017-06-08] MEDS: DILTIAZEM HCL 60 MG TAB PO SCH ×2 (10:04→22:52)
[2017-06-08] MEDS: ASCORBIC ACID 500 MG TAB PO SCH (10:04)
[2017-06-08] MEDS: BUDESONIDE (INHALATION) 0.5 MG/2 ML NEB NEB SCH ×2 (10:10→18:53)
[2017-06-08] MEDS: DAPTOmycin 250 MG in SODIUM CHL 0.9% 50 ML IV SCH (10:19)
[2017-06-08] MEDS: ATORVASTATIN 20 MG TAB PO SCH (22:53)
[2017-06-08] MEDS: MIRTAZAPINE 30 MG TAB PO SCH (22:53)
[2017-06-09] VITALS (104 sets, daily range): BP systolic 83–138; BP diastolic 34–90
[2017-06-09] MEDS: MIDAZOLAM DRIP 50 mg/50mL 50 ML IV SCH ×2 (00:31→06:06)
[2017-06-09] MEDS: IPRATROPIUM BROM 0.5 MG/2.5ML INH SOL NEB SCH ×4 (00:40→18:30)
[2017-06-09] MEDS: LEVALBUTEROL HCL 1.25 MG/3 ML NEB IN SCH ×3 (00:40→18:30)
[2017-06-09 04:12] LABS: INR 1.16 (0.9-1.15); Partial Thromboplastin Time 32.2 sec (22.64-33.71); Prothrombin Time 12.7 sec (9.37-12.3)
[2017-06-09 04:21] LABS: Albumin 1.8 g/dL (3.4-5.0); Bilirubin, Total 0.5 mg/dL (0.2-1.0); Calcium 7.3 mg/dL (8.5-10.1); Potassium 4.4 mmol/L (3.5-5.1); Total Protein 5.4 g/dL (6.4-8.2)
[2017-06-09 04:24] LABS: Basophils # (auto) 0 uL; Basophils % (auto) 0.3 % (0.0-2.0); Eosinophils # (auto) 0 uL; Eosinophils % (auto) 0.2 % (0.0-7.0); Hematocrit 30.7 % (36.0-46.0); Hemoglobin 10.1 g/dL (12.2-16.2); Lymphocytes # (auto) 0.5 uL; Lymphocytes % (auto) 7.2 % (10.0-50.0); Mean Corpuscular Hemoglobin 31.6 pg (28.0-32.0); Mean Corpuscular Volume 95.9 fL (80.0-100.0); Monocytes # (auto) 0.7 uL; Monocytes % (auto) 9.4 % (0.0-12.0); Neutrophils # (auto) 5.8 uL; Neutrophils % (auto) 82.9 % (37.0-80.0); Nucleated Red Blood Cells % 0.1 %; Platelet Count (auto) 142 10^3/uL (140-450); Red Cell Distribution Width 15.2 % (11.8-14.3)
[2017-06-09] MEDS: BUDESONIDE (INHALATION) 0.5 MG/2 ML NEB NEB SCH ×2 (05:41→18:30)
[2017-06-09] MEDS: InsuLIN REG 1unit/0.01ml Soln (100units/ml) SC SCH ×4 (06:00→18:00)
[2017-06-09] MEDS: SODIUM CHLOR 0.9% PF (SALINE LOCK) 10ML VIAL IV SCH ×3 (06:06→22:20)
[2017-06-09] MEDS: D5W/SOD CHL 0.45% 1,000 ML IV SCH ×3 (06:06→21:41)
[2017-06-09] MEDS: PROPOFOL 100 ML IV SCH (06:11)
[2017-06-09] MEDS: ACCU-CHEK COMFORT CURVE STRIP VI SCH ×4 (06:15→18:28)
[2017-06-09] MEDS: LEVOTHYROXINE SODIUM 100 MCG TAB PO SCH (07:27)
[2017-06-09] MEDS: NOREPINEPHRINE 8 MG/250ML KIT 250 ML IV SCH (07:45)
[2017-06-09] MEDS: ZINC SULFATE 220 MG CAP PO SCH (10:00)
[2017-06-09] MEDS ORDERED: MICONAZOLE NITRATE 2 % VAGINAL CREAM 45 GM PV SCH (10:00)
[2017-06-09] MEDS: DAPTOmycin 250 MG in SODIUM CHL 0.9% 50 ML IV SCH (10:00)
[2017-06-09] MEDS: POTASSIUM CHL 10% (20 MEQ/15ML) 15ml ORAL SOLN GT SCH ×2 (10:00→22:20)
[2017-06-09] MEDS: TOLTERODINE TARTRATE 1 MG TAB PO SCH ×2 (10:00→22:29)
[2017-06-09] MEDS: MULTIPLE VITAMIN TAB PO SCH (10:00)
[2017-06-09] MEDS: DILTIAZEM HCL 60 MG TAB PO SCH ×2 (10:00→22:23)
[2017-06-09] MEDS: MEGESTROL ACET 400MG/10ML ORAL SUSP PO SCH ×2 (10:00→22:23)
[2017-06-09] MEDS: ASCORBIC ACID 500 MG TAB PO SCH (10:00)
[2017-06-09] MEDS: PANTOPRAZOLE 40 MG TAB PO SCH (10:00)
[2017-06-09] MEDS: ATORVASTATIN 20 MG TAB PO SCH (22:23)
[2017-06-09] MEDS: MIRTAZAPINE 30 MG TAB PO SCH (22:24)
[2017-06-10] VITALS (59 sets, daily range): BP systolic 82–153; BP diastolic 35–83
[2017-06-10] MEDS: ACCU-CHEK COMFORT CURVE STRIP VI SCH ×4 (00:11→18:13)
[2017-06-10] MEDS: LEVALBUTEROL HCL 1.25 MG/3 ML NEB IN SCH ×4 (00:36→18:42)
[2017-06-10] MEDS: IPRATROPIUM BROM 0.5 MG/2.5ML INH SOL NEB SCH ×4 (00:36→18:42)
[2017-06-10] MEDS: MIDAZOLAM DRIP 50 mg/50mL 50 ML IV SCH (01:10)
[2017-06-10 03:45] LABS: Basophils # (auto) 0 uL; Basophils % (auto) 0.2 % (0.0-2.0); Eosinophils # (auto) 0 uL; Eosinophils % (auto) 0.4 % (0.0-7.0); Hematocrit 29.2 % (36.0-46.0); Hemoglobin 9.8 g/dL (12.2-16.2); Lymphocytes # (auto) 0.5 uL; Lymphocytes % (auto) 5.9 % (10.0-50.0); Mean Corpuscular Hemoglobin 31.9 pg (28.0-32.0); Mean Corpuscular Hgb Conc. 33.5 g/dL (32.0-36.0); Mean Corpuscular Volume 95.2 fL (80.0-100.0); Monocytes # (auto) 0.6 uL; Monocytes % (auto) 7.4 % (0.0-12.0); Neutrophils # (auto) 6.7 uL; Neutrophils % (auto) 86.1 % (37.0-80.0); Platelet Count (auto) 169 10^3/uL (140-450); Red Blood Cells 3.06 10^6/uL (4.0-5.20); Red Cell Distribution Width 15.1 % (11.8-14.3); White Blood Cell 7.8 10^3/uL (4.4-10.8)
[2017-06-10 03:57] LABS: INR 1.19 (0.9-1.15); Partial Thromboplastin Time 33.7 sec (22.64-33.71)
[2017-06-10 04:04] LABS: BUN/Creatinine Ratio 33.3; Calcium 7.1 mg/dL (8.5-10.1); Potassium 4.4 mmol/L (3.5-5.1)
[2017-06-10] MEDS: InsuLIN REG 1unit/0.01ml Soln (100units/ml) SC SCH ×4 (06:00→18:00)
[2017-06-10] MEDS: PROPOFOL 100 ML IV SCH (06:11)
[2017-06-10] MEDS: SODIUM CHLOR 0.9% PF (SALINE LOCK) 10ML VIAL IV SCH ×3 (06:17→22:00)
[2017-06-10] MEDS: BUDESONIDE (INHALATION) 0.5 MG/2 ML NEB NEB SCH ×2 (06:29→18:42)
[2017-06-10] MEDS: LEVOTHYROXINE SODIUM 100 MCG TAB PO SCH (06:53)
[2017-06-10] MEDS: NOREPINEPHRINE 8 MG/250ML KIT 250 ML IV SCH (07:45)
[2017-06-10] MEDS: MULTIPLE VITAMIN TAB PO SCH (10:00)
[2017-06-10] MEDS: ASCORBIC ACID 500 MG TAB PO SCH (10:00)
[2017-06-10] MEDS: DILTIAZEM HCL 60 MG TAB PO SCH ×2 (10:00→22:00)
[2017-06-10] MEDS: ZINC SULFATE 220 MG CAP PO SCH (10:00)
[2017-06-10] MEDS: TOLTERODINE TARTRATE 1 MG TAB PO SCH ×2 (10:00→22:00)
[2017-06-10] MEDS: POTASSIUM CHL 10% (20 MEQ/15ML) 15ml ORAL SOLN GT SCH ×2 (10:00→22:20)
[2017-06-10] MEDS: MEGESTROL ACET 400MG/10ML ORAL SUSP PO SCH ×2 (10:00→22:00)
[2017-06-10] MEDS: PANTOPRAZOLE 40 MG TAB PO SCH (10:00)
[2017-06-10] MEDS: D5W/SOD CHL 0.45% 1,000 ML IV SCH ×2 (10:50→20:45)
[2017-06-10] MEDS ORDERED: LORazepam 2MG/ML-1ML VIAL IV PRN (17:30)
[2017-06-10] MEDS ORDERED: MORPHINE SULFATE 4 MG/ML SYR/VIAL IV PRN (17:30)
[2017-06-10] MEDS: ATORVASTATIN 20 MG TAB PO SCH (22:00)
[2017-06-10] MEDS: MIRTAZAPINE 30 MG TAB PO SCH (22:00)
[2017-06-10] MEDS: HEPARIN DRIP/D5W 100UNITS/ML 250 ML IV SCH (22:22)
[2017-06-11] VITALS (12 sets, daily range): BP systolic 94–154; BP diastolic 44–69
[2017-06-11] MEDS: IPRATROPIUM BROM 0.5 MG/2.5ML INH SOL NEB SCH ×4 (00:32→19:46)
[2017-06-11] MEDS: LEVALBUTEROL HCL 1.25 MG/3 ML NEB IN SCH ×4 (00:32→19:46)
[2017-06-11 03:50] LABS: Basophils # (auto) 0 uL; Basophils % (auto) 0.2 % (0.0-2.0); Eosinophils # (auto) 0 uL; Eosinophils % (auto) 0.2 % (0.0-7.0); Hematocrit 30.1 % (36.0-46.0); Hemoglobin 10.1 g/dL (12.2-16.2); Lymphocytes # (auto) 0.5 uL; Lymphocytes % (auto) 5.7 % (10.0-50.0); Mean Corpuscular Hemoglobin 32.3 pg (28.0-32.0); Mean Corpuscular Hgb Conc. 33.5 g/dL (32.0-36.0); Mean Corpuscular Volume 96.5 fL (80.0-100.0); Monocytes # (auto) 0.6 uL; Monocytes % (auto) 6.7 % (0.0-12.0); Neutrophils # (auto) 7.6 uL; Neutrophils % (auto) 87.2 % (37.0-80.0); Platelet Count (auto) 164 10^3/uL (140-450); Red Blood Cells 3.12 10^6/uL (4.0-5.20); Red Cell Distribution Width 15.4 % (11.8-14.3); White Blood Cell 8.8 10^3/uL (4.4-10.8)
[2017-06-11 03:58] LABS: INR 1.16 (0.9-1.15); Partial Thromboplastin Time 33.5 sec (22.64-33.71); Prothrombin Time 12.7 sec (9.37-12.3)
[2017-06-11 04:13] LABS: BUN/Creatinine Ratio 30.6; Calcium 7.3 mg/dL (8.5-10.1)
[2017-06-11] MEDS: SODIUM CHLOR 0.9% PF (SALINE LOCK) 10ML VIAL IV SCH ×3 (06:00→22:44)
[2017-06-11] MEDS: InsuLIN REG 1unit/0.01ml Soln (100units/ml) SC SCH ×5 (06:00→17:19)
[2017-06-11] MEDS: ACCU-CHEK COMFORT CURVE STRIP VI SCH ×4 (06:00→17:12)
[2017-06-11] MEDS: BUDESONIDE (INHALATION) 0.5 MG/2 ML NEB NEB SCH ×2 (06:41→19:49)
[2017-06-11] MEDS: LEVOTHYROXINE SODIUM 100 MCG TAB PO SCH (07:00)
[2017-06-11] MEDS: D5W/SOD CHL 0.45% 1,000 ML IV SCH ×2 (08:35→15:46)
[2017-06-11] MEDS: MEGESTROL ACET 400MG/10ML ORAL SUSP PO SCH ×2 (10:00→22:45)
[2017-06-11] MEDS: DILTIAZEM HCL 60 MG TAB PO SCH ×2 (10:00→22:45)
[2017-06-11] MEDS: PANTOPRAZOLE 40 MG TAB PO SCH (10:00)
[2017-06-11] MEDS: ZINC SULFATE 220 MG CAP PO SCH (10:17)
[2017-06-11] MEDS: POTASSIUM CHL 10% (20 MEQ/15ML) 15ml ORAL SOLN GT SCH ×2 (10:17→22:43)
[2017-06-11] MEDS: MULTIPLE VITAMIN TAB PO SCH (10:18)
[2017-06-11] MEDS: ASCORBIC ACID 500 MG TAB PO SCH (10:18)
[2017-06-11] MEDS: TOLTERODINE TARTRATE 1 MG TAB PO SCH ×2 (10:18→22:45)
[2017-06-11] MEDS: ATORVASTATIN 20 MG TAB PO SCH (22:45)
[2017-06-11] MEDS: MIRTAZAPINE 30 MG TAB PO SCH (22:46)
[2017-06-12] MEDS: ACCU-CHEK COMFORT CURVE STRIP VI SCH ×4 (00:28→17:42)
[2017-06-12] MEDS: LEVALBUTEROL HCL 1.25 MG/3 ML NEB IN SCH ×3 (00:54→11:33)
[2017-06-12] MEDS: IPRATROPIUM BROM 0.5 MG/2.5ML INH SOL NEB SCH ×3 (00:54→11:33)
[2017-06-12] MEDS: D5W/SOD CHL 0.45% 1,000 ML IV SCH ×2 (02:36→13:11)
[2017-06-12 05:00] VITALS: BP 134/68
[2017-06-12] MEDS: InsuLIN REG 1unit/0.01ml Soln (100units/ml) SC SCH ×4 (06:00→17:42)
[2017-06-12] MEDS: SODIUM CHLOR 0.9% PF (SALINE LOCK) 10ML VIAL IV SCH ×2 (06:52→15:59)
[2017-06-12] MEDS: LEVOTHYROXINE SODIUM 100 MCG TAB PO SCH (06:53)
[2017-06-12 07:07] LABS: Basophils # (auto) 0 uL; Basophils % (auto) 0.2 % (0.0-2.0); Eosinophils # (auto) 0 uL; Eosinophils % (auto) 0.3 % (0.0-7.0); Hematocrit 39.3 % (36.0-46.0); Hemoglobin 12.9 g/dL (12.2-16.2); Lymphocytes # (auto) 0.6 uL; Mean Corpuscular Hemoglobin 31.9 pg (28.0-32.0); Mean Corpuscular Hgb Conc. 32.9 g/dL (32.0-36.0); Mean Corpuscular Volume 96.9 fL (80.0-100.0); Monocytes # (auto) 0.6 uL; Monocytes % (auto) 6.2 % (0.0-12.0); Neutrophils # (auto) 8.3 uL; Neutrophils % (auto) 87.3 % (37.0-80.0); Platelet Count (auto) 236 10^3/uL (140-450); Red Blood Cells 4.05 10^6/uL (4.0-5.20); Red Cell Distribution Width 15.2 % (11.8-14.3); White Blood Cell 9.5 10^3/uL (4.4-10.8)
[2017-06-12 08:55] LABS: INR 1.17 (0.9-1.15); Partial Thromboplastin Time 20.1 sec (22.64-33.71); Prothrombin Time 12.8 sec (9.37-12.3)
[2017-06-12 09:00] VITALS: BP 126/68
[2017-06-12] MEDS: ZINC SULFATE 220 MG CAP PO SCH (09:56)
[2017-06-12] MEDS: MULTIPLE VITAMIN TAB PO SCH (09:56)
[2017-06-12] MEDS: TOLTERODINE TARTRATE 1 MG TAB PO SCH ×2 (09:56→22:33)
[2017-06-12] MEDS: ASCORBIC ACID 500 MG TAB PO SCH (09:57)
[2017-06-12] MEDS: DILTIAZEM HCL 60 MG TAB PO SCH ×2 (09:57→22:33)
[2017-06-12] MEDS: MEGESTROL ACET 400MG/10ML ORAL SUSP PO SCH ×2 (09:57→22:34)
[2017-06-12] MEDS: PANTOPRAZOLE 40 MG TAB PO SCH (09:57)
[2017-06-12] MEDS: POTASSIUM CHL 10% (20 MEQ/15ML) 15ml ORAL SOLN GT SCH ×2 (09:58→22:32)
[2017-06-12] MEDS: BUDESONIDE (INHALATION) 0.5 MG/2 ML NEB NEB SCH (11:33)
[2017-06-12 13:00] VITALS: BP 145/77
[2017-06-12] MEDS: LEVOFLOXACIN 500MG 100 ML IV SCH (15:59)
[2017-06-12 17:13] VITALS: BP 155/82
[2017-06-12] MEDS: BOOST PLUS 8 ounce PO SCH (17:42)
[2017-06-12 22:00] VITALS: BP 145/67
[2017-06-12] MEDS: ATORVASTATIN 20 MG TAB PO SCH (22:34)
[2017-06-12] MEDS: MIRTAZAPINE 30 MG TAB PO SCH (22:34)
[2017-06-13] MEDS: ACCU-CHEK COMFORT CURVE STRIP VI SCH ×4 (00:19→18:17)
[2017-06-13] MEDS: D5W/SOD CHL 0.45% 1,000 ML IV SCH ×3 (00:19→18:52)
[2017-06-13] MEDS: InsuLIN REG 1unit/0.01ml Soln (100units/ml) SC SCH ×4 (06:00→18:00)
[2017-06-13 06:04] VITALS: BP 93/64
[2017-06-13 06:09] VITALS: BP 144/79
[2017-06-13] MEDS: LEVOTHYROXINE SODIUM 100 MCG TAB PO SCH (06:33)
[2017-06-13 06:45] LABS: Basophils # (auto) 0 uL; Basophils % (auto) 0.3 % (0.0-2.0); Eosinophils # (auto) 0.1 uL; Eosinophils % (auto) 0.7 % (0.0-7.0); Hematocrit 39.1 % (36.0-46.0); Hemoglobin 12.8 g/dL (12.2-16.2); Lymphocytes # (auto) 0.5 uL; Lymphocytes % (auto) 5.4 % (10.0-50.0); Mean Corpuscular Hemoglobin 32.5 pg (28.0-32.0); Mean Corpuscular Hgb Conc. 32.9 g/dL (32.0-36.0); Mean Corpuscular Volume 98.9 fL (80.0-100.0); Monocytes # (auto) 0.7 uL; Monocytes % (auto) 7.4 % (0.0-12.0); Neutrophils # (auto) 8.5 uL; Neutrophils % (auto) 86.2 % (37.0-80.0); Nucleated Red Blood Cells % 0.1 %; Platelet Count (auto) 226 10^3/uL (140-450); Red Blood Cells 3.95 10^6/uL (4.0-5.20); Red Cell Distribution Width 15.4 % (11.8-14.3); White Blood Cell 9.9 10^3/uL (4.4-10.8)
[2017-06-13 06:56] LABS: INR 1.17 (0.9-1.15); Partial Thromboplastin Time 28.8 sec (22.64-33.71); Prothrombin Time 12.8 sec (9.37-12.3)
[2017-06-13 09:00] VITALS: BP 151/79
[2017-06-13] MEDS: POTASSIUM CHL 10% (20 MEQ/15ML) 15ml ORAL SOLN GT SCH ×2 (09:48→22:16)
[2017-06-13] MEDS: BOOST PLUS 8 ounce PO SCH ×2 (09:48→18:16)
[2017-06-13] MEDS: ZINC SULFATE 220 MG CAP PO SCH (09:49)
[2017-06-13] MEDS: LEVOFLOXACIN 500MG 100 ML IV SCH (09:49)
[2017-06-13] MEDS: MULTIPLE VITAMIN TAB PO SCH (09:50)
[2017-06-13] MEDS: MEGESTROL ACET 400MG/10ML ORAL SUSP PO SCH ×2 (09:50→22:17)
[2017-06-13] MEDS: DILTIAZEM HCL 60 MG TAB PO SCH ×2 (09:50→22:17)
[2017-06-13] MEDS: PANTOPRAZOLE 40 MG TAB PO SCH (09:51)
[2017-06-13] MEDS: ASCORBIC ACID 500 MG TAB PO SCH (09:51)
[2017-06-13] MEDS ORDERED: RIVAROXABAN 10 MG TAB PO ONE (11:00)
[2017-06-13 13:00] VITALS: BP 128/45
[2017-06-13 18:07] VITALS: BP 140/63
[2017-06-13 22:14] VITALS: BP 141/71
[2017-06-14 05:23] LABS: Basophils # (auto) 0 uL; Basophils % (auto) 0.4 % (0.0-2.0); Eosinophils # (auto) 0 uL; Eosinophils % (auto) 0.4 % (0.0-7.0); Hematocrit 38.9 % (36.0-46.0); Hemoglobin 12.8 g/dL (12.2-16.2); Lymphocytes # (auto) 0.6 uL; Lymphocytes % (auto) 5.6 % (10.0-50.0); Mean Corpuscular Hemoglobin 32.4 pg (28.0-32.0); Mean Corpuscular Hgb Conc. 32.9 g/dL (32.0-36.0); Mean Corpuscular Volume 98.7 fL (80.0-100.0); Monocytes # (auto) 0.9 uL; Monocytes % (auto) 8.7 % (0.0-12.0); Neutrophils # (auto) 8.6 uL; Neutrophils % (auto) 84.9 % (37.0-80.0); Nucleated Red Blood Cells % 0.1 %; Platelet Count (auto) 267 10^3/uL (140-450); Red Blood Cells 3.94 10^6/uL (4.0-5.20); Red Cell Distribution Width 14.9 % (11.8-14.3); White Blood Cell 10.1 10^3/uL (4.4-10.8)
[2017-06-14 05:26] VITALS: BP 124/64
[2017-06-14 05:38] LABS: INR 1.26 (0.9-1.15); Partial Thromboplastin Time 36.1 sec (22.64-33.71); Prothrombin Time 13.8 sec (9.37-12.3)
[2017-06-14] MEDS: D5W/SOD CHL 0.45% 1,000 ML IV SCH ×2 (05:40→16:40)
[2017-06-14] MEDS: InsuLIN REG 1unit/0.01ml Soln (100units/ml) SC SCH ×4 (06:00→17:14)
[2017-06-14] MEDS: ACCU-CHEK COMFORT CURVE STRIP VI SCH ×4 (06:18→17:14)
[2017-06-14 09:29] VITALS: BP 118/49
[2017-06-14] MEDS: POTASSIUM CHL 10% (20 MEQ/15ML) 15ml ORAL SOLN GT SCH (09:54)
[2017-06-14] MEDS: DILTIAZEM HCL 60 MG TAB PO SCH (09:54)
[2017-06-14] MEDS: MEGESTROL ACET 400MG/10ML ORAL SUSP PO SCH (09:54)
[2017-06-14] MEDS: LEVOFLOXACIN 500MG 100 ML IV SCH (09:56)
[2017-06-14] MEDS ORDERED: XARELTO 10 MG PO SCH (10:00)
[2017-06-14] MEDS ORDERED: RIVAROXABAN 10 MG TAB PO SCH (10:00)
[2017-06-14] MEDS: BOOST PLUS 8 ounce PO SCH ×2 (11:20→17:14)
[2017-06-14 12:27] VITALS: BP 132/60
[2017-06-14 16:22] VITALS: BP 123/50
== END 2017-06-14 21:46 | disposition expired | DRG 870 ==
LOC: EDBD 05:23 → ER 05:30 → OVERFLOW 05:31 → DOU IN ICU 05-26 12:50 → TELE-WESTW 05-27 11:33 → DOU IN ICU 05-29 14:04 → TELE-CENTR 05-30 13:59 → ICU WEST 05-31 04:02 → TELE-EAST 06-11 11:20
PROVIDERS: ADMIT Internal Medicine; ATTEND Specialist
PROC: 5A09457 Assistance with Respiratory Ventilation, 24-96 Consecutive Hours, Continuous Positive Airway Pressure (ICD-10-PCS; principal; 2017-05-25)
PROC: 5A09357 Assistance with Respiratory Ventilation, Less than 24 Consecutive Hours, Continuous Positive Airway Pressure (ICD-10-PCS; 2017-05-28)
PROC: 5A09357 Assistance with Respiratory Ventilation, Less than 24 Consecutive Hours, Continuous Positive Airway Pressure (ICD-10-PCS; 2017-05-29)
PROC: 5A1955Z Respiratory Ventilation, Greater than 96 Consecutive Hours (ICD-10-PCS; 2017-05-31)
PROC: 0BH17EZ Insertion of Endotracheal Airway into Trachea, Via Natural or Artificial Opening (ICD-10-PCS; 2017-05-31)
PROC: 02HV33Z Insertion of Infusion Device into Superior Vena Cava, Percutaneous Approach (ICD-10-PCS; 2017-05-31)
PROC: 30233N1 Transfusion of Nonautologous Red Blood Cells into Peripheral Vein, Percutaneous Approach (ICD-10-PCS; 2017-06-03)
PROC: 0W993ZZ Drainage of Right Pleural Cavity, Percutaneous Approach (ICD-10-PCS; 2017-06-09)
PROC: 0W9B3ZZ Drainage of Left Pleural Cavity, Percutaneous Approach (ICD-10-PCS; 2017-06-10)
DX: A41.1 Sepsis due to other specified staphylococcus (principal); J96.21 Acute and chronic respiratory failure with hypoxia; E41 Nutritional marasmus; G93.41 Metabolic encephalopathy; J18.1 Lobar pneumonia, unspecified organism; J90 Pleural effusion, not elsewhere classified; L89.154 Pressure ulcer of sacral region, stage 4; I82.B11 Acute embolism and thrombosis of right subclavian vein; J96.22 Acute and chronic respiratory failure with hypercapnia; J44.0 Chronic obstructive pulmonary disease with (acute) lower respiratory infection; J45.901 Unspecified asthma with (acute) exacerbation; I13.0 Hypertensive heart and chronic kidney disease with heart failure and stage 1 through stage 4 chronic kidney disease, or unspecified chronic kidney disease; J44.1 Chronic obstructive pulmonary disease with (acute) exacerbation; N39.0 Urinary tract infection, site not specified; I82.611 Acute embolism and thrombosis of superficial veins of right upper extremity; I46.9 Cardiac arrest, cause unspecified; L89.610 Pressure ulcer of right heel, unstageable; D64.9 Anemia, unspecified; E11.22 Type 2 diabetes mellitus with diabetic chronic kidney disease; J20.9 Acute bronchitis, unspecified; E03.9 Hypothyroidism, unspecified; N90.89 Other specified noninflammatory disorders of vulva and perineum; I25.10 Atherosclerotic heart disease of native coronary artery without angina pectoris; F32.9 Major depressive disorder, single episode, unspecified; K21.9 Gastro-esophageal reflux disease without esophagitis; K59.00 Constipation, unspecified; N18.2 Chronic kidney disease, stage 2 (mild); L89.621 Pressure ulcer of left heel, stage 1; I50.9 Heart failure, unspecified; M85.80 Other specified disorders of bone density and structure, unspecified site; R62.7 Adult failure to thrive; Z79.01 Long term (current) use of anticoagulants; Z95.5 Presence of coronary angioplasty implant and graft; Z88.8 Allergy status to other drugs, medicaments and biological substances; Z68.24 Body mass index [BMI] 24.0-24.9, adult; Z88.0 Allergy status to penicillin; Z88.1 Allergy status to other antibiotic agents; Z90.89 Acquired absence of other organs; Z79.899 Other long term (current) drug therapy; Z74.01 Bed confinement status
CPT/HCPCS: 32555; 36415; 36600; 51702; 70450; 71045; 76604; 76942; 80048; 80053; 80202; 81001; 82805; 82962; 83036; 83605; 83735; 83880; 83986; 84443; 84484; 85025; 85379; 85384; 85610; 85730; 86850; 86870; 86900; 86901; 86902; 86922; 87040; 87070; 87077; 87081; 87086; 87186; 87205; 89051; 93005; 93306; 93971; 94002; 94003; 94640; 94660; 96365; 96379; 97110; 97163; C9113; G0378; J1815; J1956; J2250; J7060